=== PATIENT | male | born 1960 | race African-American/Black ===

== ENCOUNTER 2022-02-04 17:34 | Emergency (ER) | payer MEDICAID ==
[~2022-02-04] VITALS: Ht 177.8 cm; Wt 75.0 kg
[2022-02-04] MEDS ORDERED: ACETAMINOPHEN 325MG TABLET PO STA (19:07)
[2022-02-04] MEDS ORDERED: CLONIDINE 0.1MG TABLET PO ONE (19:15)
[2022-02-04] MEDS ORDERED: LABETALOL HCL 100MG TABLET PO ONE (20:45)
[2022-02-04 20:49] LABS: BASOPHILS % 0.8 % (0.0-2.0); EOSINOPHILS % 2.1 % (0.0-5.0); HEMATOCRIT. 44.3 % (42.0-52.0); HEMOGLOBIN. 14.3 g/dL (14.0-18.0); LYMPHOCYTES % 11.3 % (20.0-50.0); MEAN CORPUSCULAR HEMOGLOBIN 26.6 pg (28.0-32.0); MEAN CORPUSCULAR VOLUME 82.1 fL (80.0-94.0); MEAN PLATELET VOLUME 9.2 fl (7.4-10.4); MONOCYTES % 8.8 % (2.0-8.0); PLATELET 228 x1000/uL (130-400); RED BLOOD CELL COUNT 5.39 mill/uL (4.7-6.1); RED CELL DISTRIBUTION WIDTH 14.8 % (11.6-14.6)
[2022-02-04 20:57] LABS: CHLORIDE 108 mEq/L (98-107)
[2022-02-04 22:00] VITALS: BP 163/100
== END 2022-02-04 22:36 | disposition home or self-care (01) ==
LOC: ER 17:34
DX: I10 Essential (primary) hypertension (principal); R53.1 Weakness; R25.2 Cramp and spasm; R94.31 Abnormal electrocardiogram [ECG] [EKG]
CPT/HCPCS: 36415; 80053; 85025; 93005; 93970; 99285

== ENCOUNTER 2022-12-12 14:14 | Inpatient (IN) | payer MEDICAID ==
[~2022-12-12] VITALS: Ht 167.6 cm; Wt 80.7 kg
[2022-12-12] MEDS ORDERED: SODIUM CHLORIDE 0.9% 1,000 ML IV ONE (15:00)
[2022-12-12 15:46] LABS: HEMATOCRIT. 32.7 % (42.0-52.0); HEMOGLOBIN. 10.5 g/dL (14.0-18.0); MEAN CORPUSCULAR HEMOGLOBIN 26.2 pg (28.0-32.0); MEAN CORPUSCULAR VOLUME 81.8 fL (80.0-94.0); MEAN PLATELET VOLUME 9.2 fl (7.4-10.4); PLATELET 255 x1000/uL (130-400); RED BLOOD CELL COUNT 3.99 mill/uL (4.7-6.1); RED CELL DISTRIBUTION WIDTH 14.5 % (11.6-14.6)
[2022-12-12 15:56] LABS: CHLORIDE 108 mEq/L (98-107)
[2022-12-12 16:26] LABS: PLATELET ESTIMATE NORMAL
[2022-12-12] MEDS ORDERED: PANTOPRAZOLE 80 MG in SODIUM CHLORIDE 0.9% 100 ML IV SCH (20:00)
[2022-12-12] MEDS: PANTOPRAZOLE 80 MG in SODIUM CHLORIDE 0.9% 100 ML IV SCH (22:48)
[2022-12-13] VITALS (22 sets, daily range): BP systolic 110–161; BP diastolic 70–126
[2022-12-13] MEDS: PANTOPRAZOLE 80 MG in SODIUM CHLORIDE 0.9% 100 ML IV SCH (09:31)
[2022-12-13] MEDS ORDERED: IPRATROPIUM BROMIDE (0.02%) 0.5MG/2.5ML NEB HHN PRN ×2 (13:00→20:00)
[2022-12-13] MEDS ORDERED: ALBUTEROL (0.083%) 2.5MG/3ML NEB HHN PRN ×2 (13:00→20:00)
[2022-12-13] MEDS ORDERED: ACETAMINOPHEN 325MG TABLET PO PRN (13:00)
[2022-12-13] MEDS ORDERED: ONDANSETRON HCL 4MG/2ML INJ IV PRN (13:00)
[2022-12-13] MEDS ORDERED: IPRATROPIUM/ALBUTEROL 0.5-3(2.5)MG/3ML NEB NEB PRN (13:00)
[2022-12-13] MEDS ORDERED: SODIUM CHLORIDE 0.9% 1,000 ML IV SCH (13:00)
[2022-12-13 17:29] LABS: BASOPHILS % 0.4 % (0.0-2.0); EOSINOPHILS % 0.5 % (0.0-5.0); HEMATOCRIT. 25.9 % (42.0-52.0); LYMPHOCYTES % 13.4 % (20.0-50.0); MEAN CORPUSCULAR HEMOGLOBIN 25.7 pg (28.0-32.0); MEAN PLATELET VOLUME 9.5 fl (7.4-10.4); MONOCYTES % 6.6 % (2.0-8.0); NEUTROPHILS % 79.1 % (40.0-76.0); PLATELET 225 x1000/uL (130-400); RED BLOOD CELL COUNT 3.12 mill/uL (4.7-6.1); RED CELL DISTRIBUTION WIDTH 14.5 % (11.6-14.6)
[2022-12-13 17:41] LABS: CHLORIDE 112 mEq/L (98-107)
[2022-12-13 17:45] LABS: TOTAL IRON BINDING CAPACITY 353 ug/dL (250-450)
[2022-12-13] MEDS: LACTATED RINGERS 1,000 ML IV SCH (18:58)
[2022-12-13] MEDS ORDERED: IPRATROPIUM/ALBUTEROL 0.5-3(2.5)MG/3ML NEB HHN PRN (20:00)
[2022-12-14] VITALS (49 sets, daily range): BP systolic 113–192; BP diastolic 60–117
[2022-12-14] MEDS: LACTATED RINGERS 1,000 ML IV SCH ×2 (01:15→12:40)
[2022-12-14 09:33] LABS: BASOPHILS % 0.3 % (0.0-2.0); EOSINOPHILS % 0.3 % (0.0-5.0); HEMATOCRIT. 26.7 % (42.0-52.0); HEMOGLOBIN. 8.9 g/dL (14.0-18.0); LYMPHOCYTES % 8.1 % (20.0-50.0); MEAN CORPUSCULAR HEMOGLOBIN 27.8 pg (28.0-32.0); MEAN CORPUSCULAR VOLUME 83.1 fL (80.0-94.0); MEAN PLATELET VOLUME 9.1 fl (7.4-10.4); NEUTROPHILS % 81.3 % (40.0-76.0); PLATELET 175 x1000/uL (130-400); RED BLOOD CELL COUNT 3.22 mill/uL (4.7-6.1); RED CELL DISTRIBUTION WIDTH 14.4 % (11.6-14.6)
[2022-12-14 09:40] LABS: INR 1.1; PROTHROMBIN TIME 11.4 sec (9.6-11.0)
[2022-12-14] MEDS ORDERED: CLON0.2T PO (12:23)
[2022-12-14] MEDS ORDERED: ASPI-1497 MT (12:23)
[2022-12-14] MEDS: CLONIDINE 0.2MG TABLET PO SCH ×2 (12:36→17:26)
[2022-12-14] MEDS: SODIUM CHLORIDE 0.9% 1,000 ML IV SCH ×2 (15:09→23:46)
[2022-12-15] VITALS (21 sets, daily range): BP systolic 121–173; BP diastolic 69–117
[2022-12-15 05:11] LABS: BASOPHILS % 0.3 % (0.0-2.0); EOSINOPHILS % 2.7 % (0.0-5.0); HEMATOCRIT. 25.9 % (42.0-52.0); HEMOGLOBIN. 8.6 g/dL (14.0-18.0); LYMPHOCYTES % 7.9 % (20.0-50.0); MEAN CORPUSCULAR HEMOGLOBIN 28.1 pg (28.0-32.0); MEAN CORPUSCULAR VOLUME 84.9 fL (80.0-94.0); MEAN PLATELET VOLUME 8.5 fl (7.4-10.4); MONOCYTES % 11.4 % (2.0-8.0); NEUTROPHILS % 77.7 % (40.0-76.0); PLATELET 137 x1000/uL (130-400); RED BLOOD CELL COUNT 3.05 mill/uL (4.7-6.1); RED CELL DISTRIBUTION WIDTH 14.7 % (11.6-14.6)
[2022-12-15 05:33] LABS: CHLORIDE 116 mEq/L (98-107)
[2022-12-15] MEDS: SODIUM CHLORIDE 0.9% 1,000 ML IV SCH ×3 (07:50→22:45)
[2022-12-15] MEDS: CLONIDINE 0.2MG TABLET PO SCH ×2 (08:11→17:27)
[2022-12-15] MEDS ORDERED: CALCIUM GLUCONATE 1,000 MG in DEXT 5% WATER 90 ML IV ONE (09:00)
[2022-12-15] MEDS ORDERED: POTASSIUM CHLORIDE 20MEQ/PACKET PO NR (09:00)
[2022-12-15] MEDS: SORBITOL 70% SOLN 30ML PO SCH ×4 (10:26→21:22)
[2022-12-15] MEDS: METOCLOPRAMIDE HCL 10MG/2ML VIAL IV SCH ×4 (10:26→21:23)
[2022-12-15] MEDS: BISACODYL 5MG TABLET PO SCH ×4 (10:26→21:23)
[2022-12-15] MEDS ORDERED: CALCIUM GLUCONATE 1GM PREMIX 50 ML IV NR (11:00)
[2022-12-15 16:12] LABS: CHLORIDE 112 mEq/L (98-107)
[2022-12-16 03:33] LABS: CHLORIDE 119 mEq/L (98-107)
[2022-12-16 03:55] LABS: HEMATOCRIT. 28.9 % (42.0-52.0); HEMOGLOBIN. 9.7 g/dL (14.0-18.0); MEAN CORPUSCULAR HEMOGLOBIN 28.4 pg (28.0-32.0); MEAN CORPUSCULAR VOLUME 84.4 fL (80.0-94.0); MEAN PLATELET VOLUME 8.7 fl (7.4-10.4); PLATELET 179 x1000/uL (130-400); RED BLOOD CELL COUNT 3.42 mill/uL (4.7-6.1); RED CELL DISTRIBUTION WIDTH 14.6 % (11.6-14.6)
[2022-12-16 04:00] VITALS: BP 158/106
[2022-12-16 04:10] LABS: INR 1.1; PROTHROMBIN TIME 11.4 sec (9.6-11.0)
[2022-12-16 04:37] LABS: PLATELET ESTIMATE NORMAL
[2022-12-16] MEDS: SODIUM CHLORIDE 0.9% 1,000 ML IV SCH ×2 (05:54→14:45)
[2022-12-16 08:00] VITALS: BP 149/76
[2022-12-16] MEDS: CLONIDINE 0.2MG TABLET PO SCH ×2 (09:32→16:50)
[2022-12-16 12:00] VITALS: BP 170/106
[2022-12-16] MEDS ORDERED: SIMETHICONE 40 MG/0.6 ML 15ML ONE (12:38)
[2022-12-16] MEDS ORDERED: LIDOCAINE HCL 1% 10 MG/ML 10ML VIAL ONE (13:02)
[2022-12-16] MEDS ORDERED: MIDAZOLAM HCL 2 MG/2 ML VIAL ONE (13:03)
[2022-12-16] MEDS ORDERED: PROPOFOL 200MG/20ML VIAL IV ONE ×2 (13:03→13:33)
[2022-12-16 16:00] VITALS: BP 165/100
[2022-12-16] MEDS ORDERED: OMEP40CA20 MT (17:44)
[2022-12-16 17:47] VITALS: BP 165/100
== END 2022-12-16 19:39 | disposition home or self-care (01) | DRG 241 ==
LOC: ER 14:14 → MICUSO 19:44 → EDBEDREQSVC 12-13 08:58 → 7WST 12-13 11:02 → CVICU 12-13 18:00 → 5EST 12-15 19:00
PROVIDERS: ADMIT Internal Medicine; ATTEND Internal Medicine
PROC: 30233N1 Transfusion of Nonautologous Red Blood Cells into Peripheral Vein, Percutaneous Approach (ICD-10-PCS; principal; 2022-12-13)
PROC: 0DB78ZX Excision of Stomach, Pylorus, Via Natural or Artificial Opening Endoscopic, Diagnostic (ICD-10-PCS; 2022-12-16)
PROC: 0DJD8ZZ Inspection of Lower Intestinal Tract, Via Natural or Artificial Opening Endoscopic (ICD-10-PCS; 2022-12-16)
DX: K29.71 Gastritis, unspecified, with bleeding (principal); N17.0 Acute kidney failure with tubular necrosis; E44.1 Mild protein-calorie malnutrition; E87.20 Acidosis, unspecified; K57.91 Diverticulosis of intestine, part unspecified, without perforation or abscess with bleeding; K92.1 Melena; Z20.822 Contact with and (suspected) exposure to COVID-19; I10 Essential (primary) hypertension; J45.909 Unspecified asthma, uncomplicated; K80.20 Calculus of gallbladder without cholecystitis without obstruction; N40.0 Benign prostatic hyperplasia without lower urinary tract symptoms; K64.8 Other hemorrhoids; Z79.82 Long term (current) use of aspirin; I49.3 Ventricular premature depolarization
CPT/HCPCS: 36415; 74174; 78278; 80048; 80053; 82040; 82607; 82728; 82746; 83540; 83550; 83605; 84484; 85018; 85025; 85044; 86850; 86900; 86920; 87426; 88305; 93005; 99291; A9560; C9113; J0610; J2250; J2405; J2704; J2765; J3490; J7030; J7050; J7120; P9016

== ENCOUNTER 2024-04-18 10:12 | Emergency (ER) | payer BC, MEDICAID ==
[~2024-04-18] VITALS: Ht 170.2 cm; Wt 82.0 kg
[~2024-04-18 10:12] MED LIST: CLON0.2T PO; OMEP40CA20 MT
[2024-04-18 10:33] VITALS: O2SAT 99
[2024-04-18] MEDS ORDERED: CLON0.2T PO (10:47)
[2024-04-18] MEDS ORDERED: ALBU6.7H15 INH (10:47)
[2024-04-18 11:20] VITALS: BP 146/93; PULSE 83; RESP 18; TEMP 98.4
== END 2024-04-18 11:21 | disposition home or self-care (01) ==
LOC: ER 10:12
DX: I10 Essential (primary) hypertension (principal); J45.909 Unspecified asthma, uncomplicated; Z76.0 Encounter for issue of repeat prescription
CPT/HCPCS: 93005; 99283